=== PATIENT | male | born 1960 | race Caucasian/White ===

== ENCOUNTER 2016-11-24 22:37 | Emergency (ER) | payer OTHER ==
[~2016-11-24] VITALS: Ht 175.3 cm; Wt 115.9 kg
[2016-11-24] MEDS ORDERED: 0.9% Sodium Chloride 1,000 ML IV ONE (22:40)
--- NOTE | 2016-11-24 22:40 | ED.REPORT ---
HPI-Hip/Pelvis Prob/Inj Date of Service November 24, 2016 ED Provider: Dr. Dawson 56 y/o male with a hx of HTN and bilateral hip replacement presents to the ED via EMS complaining of possible left hip dislocation, onset an hour ago. The pt denies any pain currently. He states he was standing near the fridge when he pivoted on his left foot and heard a pop in the hip.He last ate an hour ago. The pt also had some alcohol an hour ago. This is his 3rd dislocation. Nursing Notes Stated Complaint: LEFT HIP PAIN Nursing Notes Reviewed: Yes Allergies: Coded Allergies: No Known Allergies (Unverified Allergy, Unknown, 11/24/16) Scheduled Aspirin (Aspirin) 81 Mg Tablet 81 MG PO DAILY Atorvastatin Calcium (Atorvastatin Calcium) 40 Mg Tablet 40 MG PO DAILY Fenofibrate Nanocrystallized (Fenofibrate) 145 Mg Tablet 160 MG PO DAILY Lisinopril (Lisinopril) 10 Mg Tablet 10 MG PO DAILY Metoprolol Succinate ER (Metoprolol Succinate ER) 50 Mg Tab.er.24h 50 MG PO DAILY Nabumetone (Nabumetone) 500 Mg Tablet 500 MG PO BID Scheduled PRN Acetaminophen (Acetaminophen) 325 Mg Tablet 325 MG PO Q4H PRN PRN For Fever Sildenafil Citrate (Viagra) 25 Mg Tablet 25 MG PO UD PRN PRN For Anxiety Miscellaneous Medications Cyanocobalamin (Vitamin B-12) (Vitamin B-12) 50 Mcg Tablet 50 MCG PO Etanercept (Enbrel) 50 Mg/1 Ml Pen.injctr 50 MG SQ General Time Seen by Provider: 22:40 Chief Complaint Hip dislocation left Hx Obtained From: Patient Arrived By: Ambulance Onset Occurred: 1 - 4 hours ago Context of Onset: Home injury Symptom Duration: Since onset Progression Since Onset: Unchanged Severity: Current: No pain currently Severity: Maximum: No pain Recent Healthcare: No recent doctor visit Similar Sx Previous: No Past Medical History Past Medical History Reports: Hypertension Past Surgical History Bilateral hip replacement Smoking History Unknown if Ever Smoker Social History Alcohol Use: "Social" Ambulatory Status Independent Review of Systems Reports: Left hip dislocation Complete sys rev & neg: except as marked. Physical Exam Initial Vital Signs Vital Signs (First) Date Time Temp Pulse Resp B/P Pulse Ox O2 Delivery O2 Flow Rate FiO2 11/24/16 22:51 36.2 75 18 126/74 93 Room Air Initial VS: Reviewed Head / Eyes: Atraumatic, Normocephalic Neck: Full range of motion Abdomen / GI: Soft, Non-tender Upper Extremities: Vascular intact, Neuro intact, No swelling, No tenderness Skin: Warm, Dry, No cyanosis Neurologic: Alert, Oriented, Nonfocal Lower Extremity / Pelvis / MS: Neurologic intact, Vascular intact Left Hip: Positive: ROM reduced... General/Constitutional: Awake, Alert, No acute distress, Cooperative Respiratory / Chest: Atraumatic, Breath sounds NL, Breath sounds = bilat, No respiratory distress, No rales, No rhonchi, No wheezing Cardiovascular: Heart rate NL, Regular rhythm, Heart sounds NL, No gallop, No murmurs, No rubs Back: Atraumatic, Full range of motion Skin: Atraumatic, Color NL, Warm, Dry, Intact Interpretation & Diagnostics Lab Results Interpretation Test 11/24/16 22:47 Hold Purple Top Tube Received (Received) Hold Blue Top Tube Received (Received) Hold [place] Top Tube Received (Received) X-Ray Interpretation Xray Interpretation: Result: Dislocation of left prosthetic hip X-Ray Ordered: Pelvis Interpretation / Wet Read by: Wet read ED physician Procedures Proced Mod Sedation/Analgesia Time: 01:25 Procedure Performed by: ED physician Sedation Time: 10 - 15 min Consent / Setup: Informed consent provided, Consent from patient, Time-out performed, Hand hygiene observed, Position supine Indication: Hip reduction Preparation: steel wheel engraver applied, Pulse oximeter applied, Constant attendance, IV access established, Eval last meal time, Supplemental oxygen, Procedure explained, Suction available, End tidal CO2 mon applied VS Prior to Procedure: All vital signs normal, O2 saturation normal, Blood pressure normal, Heart Rate normal, Respiratory rate normal Mallampati: Class & Anatomy: 3 hard pal/base uvula Airway Exam: Normal facial anatomy CVS/Resp Exam: Normal breath sounds, Normal heart sounds Neuro Exam: Alert, No acute distress, Responsive Sedation: Sedation: Propofol ASA Classification: 1 normal healthy patient Response During Procedure: Maintained airway well, Oxygenation stable, Sedation appropriate, Vital signs stable Complications During/After: None Reversal: None required Mental Status After Procedure: Alert, Oriented X3, Response to verbal stim, Not responsive, Normal per age, At patient's baseline Post-Procedure: Alert prior to discharge, Ambulatory with assist, Pt rtn pre- proc baseline, Vital signs normal Attestation: I performed procedure Reduction Post Dislocation Hip Time: 01:30 Procedure Performed by: ED physician Consent / Timeout / Setup: Informed consent provided, Consent from patient, Time-out performed, Hand hygiene observed Procedural Sedation/Analgesia: Sedation: Propofol Which Hip and Technique: Left hip Neurovascular: Intact pre-procedure, Intact post-procedure Post-Procedure / Complications: Reduced per examination, Procedure successful, X-ray disloc reduced, Condition improved, Tolerated procedure well, Patient stable Re-Eval/Medical Decision Source of Hx: Old records Re-Evaluation/Progress #1: Time of Eval: 00:38 Re-Evaluation/Progress Note: Rechekced pt. He is expereincing no pain currently. Discussed the plan to sedate and reduce his hip dislocation. The pt understands and agrees with the plan. All questions addressed. Re-Evaluation/Progress #2: Time of Eval: 02:25 Patient Status: Condition improved Re-Evaluation/Progress Note: Rechecked pt. He feels better and wants to go home. Informed the pt of the plan to discharge. Pt understands and agrees with plan. F/U instructions and RTER warning given. All questions addressed. Counseled Regarding: Diagnosis, Need for follow-up, When/why to return to ED Discharge & Departure Impression: Primary Impression: Dislocation of hip joint prosthesis Encounter type: initial encounter Qualified Code: T84.029A - Dislocation of unspecified internal joint prosthesis, initial encounter Disposition: Home Discharge Condition All VS Reviewed: Yes Condition: Stable Additional Instructions: Rest tonight, do not drive as we gave sedating medications. Follow up with your orthopedist soon- call for an appointment. Referrals: Manuel Diaz MD (PCP) PAN MORALES MDiblilliam Attestation Portions of this note were transcribed by Quiana Hart. I, , personally performed the history, physical exam and medical decision-making;I reviewed and confirmed the accuracy of the information in the transcribed note. Signed by Massiel Little. 11/25/16 02:24 copies to: Manuel Diaz MD; PAN MORALES MD, Donald L MD November 24, 2016 22:40 Quiana Hart November 24, 2016 23:00
[2016-11-24 22:51] VITALS: BP 126/74; PULSE 75; RESP 18; O2SAT 93
[2016-11-24] MEDS ORDERED: FENO145T19 PO (22:59)
[2016-11-24] MEDS ORDERED: VIAG25T PO (22:59)
[2016-11-24] MEDS ORDERED: ATOR40TA69 PO (22:59)
[2016-11-24] MEDS ORDERED: CYAN50TA2 PO (22:59)
[2016-11-24] MEDS ORDERED: LISI10TA PO (22:59)
[2016-11-24] MEDS ORDERED: NABU500T PO (22:59)
[2016-11-24] MEDS ORDERED: ASPI-973 PO (22:59)
[2016-11-24] MEDS ORDERED: ETAN50PE SQ (22:59)
[2016-11-24] MEDS ORDERED: ACET325T51 PO (22:59)
[2016-11-24] MEDS ORDERED: METO-272 PO (22:59)
[2016-11-24] MEDS: HYDROmorphone 0.5 mg/0.5 mL iSecure Syringe IVPUSH PRN (23:09)
[2016-11-25] MEDS: HYDROmorphone 0.5 mg/0.5 mL iSecure Syringe IVPUSH PRN (00:13)
[2016-11-25] MEDS ORDERED: Propofol 10 mg/mL 20 mL Inj ONE (01:25)
[2016-11-25] MEDS ORDERED: 0.9% Sodium Chloride 1,000 ML IV ONE (02:10)
[2016-11-25 02:33] VITALS: BP 113/80; PULSE 68; RESP 16; O2SAT 98
--- NOTE | 2016-11-25 07:45 | DRSVH ---
PROCEDURE: X-RAY PELVIS, ONE OR TWO VIEWS ([id number]) INDICATIONS: dislocated prosthetic hip TECHNIQUE: 1 view(s) of the pelvis acquired. COMPARISON: None. FINDINGS: Bones: Left hip arthroplasty dislocation is present. Right hip arthroplasty is present, and is in araseli nt. Soft tissues: Visualized bowel gas pattern is normal. No suspicious soft tissue calcifications. IMPRESSION: Left hip arthroplasty dislocation. Concordant with preliminary interpretation. Dictated by: Jared Chadwick M.D. on 11/25/2016 at 7:43 Approved by: Jared Chadwick M.D. on 11/25/2016 at 7:44
--- NOTE | 2016-11-25 07:48 | DRSVH ---
PROCEDURE: X-RAY PELVIS, ONE OR TWO VIEWS ([id number]) INDICATIONS: post reduction TECHNIQUE: 1 view(s) of the pelvis acquired. COMPARISON: [facility], CR, XR PELVIS 1 OR 2VW, 11/24/2016, 22:44. FINDINGS: Bones: Bilateral hip arthroplasty has been performed. No fractures or dislocations. No suspicious b romulo lesions. Soft tissues: Visualized bowel gas pattern is normal. No suspicious soft tissue calcifications. IMPRESSION: Relocation of left hip arthroplasty. Concordant with preliminary interpretation. Dictated by: Jared Chadwick M.D. on 11/25/2016 at 7:46 Approved by: Jared Chadwick M.D. on 11/25/2016 at 7:46
== END 2016-11-25 02:31 | disposition home or self-care (01) ==
LOC: SED 22:37
DX: T84.021A Dislocation of internal left hip prosthesis, initial encounter (principal); X50.1XXA Overexertion from prolonged static or awkward postures, initial encounter; Y92.000 Kitchen of unspecified non-institutional (private) residence as the place of occurrence of the external cause; Y93.89 Activity, other specified; Y99.8 Other external cause status; I10 Essential (primary) hypertension; Z96.643 Presence of artificial hip joint, bilateral; Z79.82 Long term (current) use of aspirin
CPT/HCPCS: 27265; 72170; 94770; 96361; 96374; 96376; 99284; J1170; J7030

== ENCOUNTER 2016-12-29 09:18 | Emergency (ER) | payer OTHER ==
[~2016-12-29] VITALS: Ht 175.3 cm; Wt 115.9 kg
[~2016-12-29 09:18] MED LIST: ACET325T51 PO; ASPI-973 PO; ATOR40TA69 PO; CYAN50TA2 PO; ETAN50PE SQ; FENO145T19 PO; LISI10TA PO; METO-272 PO; NABU500T PO; VIAG25T PO
--- NOTE | 2016-12-29 09:24 | ED.REPORT ---
HPI-Extremity Problem Lower Date of Service Dec 29, 2016 ED Provider: Godwin Woods MD Pt is a 56 y/o male w/ a hx of bilateral hip replacements and recurrent spontaneous hip dislocations, and hypertension, presenting to the ED via EMS due to probable left hip dislocation which occurred prior to arrival. The patient was walking and went to throw something in the garbage under his sink and his left hip spontaneously dislocated. He had a left hip replacement 2 years ago and he states he has dislocated his hip 4 times spontaneously in the past, most recently November 24, 2016. He has never required an orthopedist to reduce his hip in an OR setting. He hasn't taken his antihypertensives for 1 day. Nursing Notes Stated Complaint: DISLOCATED LEFT HIP Chief Complaint: Extremity Trauma Nursing Notes Reviewed: Yes Allergies: Coded Allergies: No Known Allergies (Unverified Allergy, Unknown, 12/29/16) Scheduled Aspirin (Aspirin) 81 Mg Tablet 81 MG PO DAILY Atorvastatin Calcium (Atorvastatin Calcium) 40 Mg Tablet 40 MG PO DAILY Fenofibrate Nanocrystallized (Fenofibrate) 145 Mg Tablet 160 MG PO DAILY Lisinopril (Lisinopril) 10 Mg Tablet 10 MG PO DAILY Metoprolol Succinate ER (Metoprolol Succinate ER) 50 Mg Tab.er.24h 50 MG PO DAILY Nabumetone (Nabumetone) 500 Mg Tablet 500 MG PO BID Scheduled PRN Acetaminophen (Acetaminophen) 325 Mg Tablet 325 MG PO Q4H PRN PRN For Fever Sildenafil Citrate (Viagra) 25 Mg Tablet 25 MG PO UD PRN PRN For Anxiety Miscellaneous Medications Cyanocobalamin (Vitamin B-12) (Vitamin B-12) 50 Mcg Tablet 50 MCG PO Etanercept (Enbrel) 50 Mg/1 Ml Pen.injctr 50 MG SQ General Time Seen by MD: 09:23 Chief Complaint Hip injury left Hx Obtained From: Patient, EMS Arrived By: Ambulance Onset Occurred: Just prior to arrival Symptom Duration: Since onset Location: : Hip left Quality: Painful Severity: Current: Moderate Severity: Maximum: Moderate Exacerbated by: Range of motion Past Medical History Past Medical History Sleep apnea Recurrent hip prosthesis dislocations Hypertension Past Surgical History Bilateral hip replacement Smoking History Unknown if Ever Smoker Social History Alcohol Use: "Social" Ambulatory Status Independent Review of Systems Constitutional: Denies: Chills, Fever Musculoskeletal: Reports: Joint pain Neurologic: Denies: Syncope Complete sys rev & neg: except as marked. Physical Exam Initial Vital Signs Vital Signs (First) Date Time Temp Pulse Resp B/P Pulse Ox O2 Delivery O2 Flow Rate FiO2 12/29/16 09:25 36.2 77 18 156/94 95 Room Air 12/29/16 10:26 3 Initial VS: Reviewed, Vital signs normal Head / Eyes: Atraumatic, Normocephalic, PERRL ENT: Mucous membranes moist, Conjunctiva normal, No scleral icterus Neck: Supple, Full range of motion Respiratory: Breath sounds normal, Clear to auscultation, No respiratory distress Cardiovascular: Regular rate & rhythm, Heart sounds normal, Intact distal pulses Abdomen / GI: Soft, Non-tender, No distention Upper Extremities: Vascular intact, Neuro intact, No swelling Skin: Warm, Dry, No cyanosis Neurologic: Alert, Oriented, Nonfocal Psychiatric: Mood/affect normal, Behavior normal, Normal thought content Lower Extremity / Pelvis / MS: Neurologic intact, Vascular intact, No compartment syndrome Left hip obvious dislocation LLE mildly externally rotated Ankle / Foot: No deformity, Neurologic intact, Vascular intact Interpretation & Diagnostics Lab Results Interpretation Test 12/29/16 11:05 Hold Purple Top Tube Received (Received) Hold Blue Top Tube Received (Received) Hold [place] Top Tube Received (Received) X-Ray Interpretation Xray Interpretation: IMPRESSION: Hip arthroplasty superior dislocation. Acetabular component positioning is anatomic. Dictated by: Benjamin Suggs M.D. on 12/29/2016 at 10:34 Approved by: Benjamin Suggs M.D. on 12/29/2016 at 10:35 Study Performed: 2 views X-Ray Ordered: Hip left Interpretation / Wet Read by: Interpret - Radiologist Xray Interpretation: IMPRESSION: Successful reduction of left hip arthroplasty dislocation, no [place] bone fracture found. Dictated by: Benjamin Suggs M.D. on 12/29/2016 at 11:08 Approved by: Benjamin Suggs M.D. on 12/29/2016 at 11:09 Study Performed: 1 view Interpretation / Wet Read by: Interpret - Radiologist Procedures Proced Mod Sedation/Analgesia 60 mg + 40 mg + 50 mg + 50 mg + 60 mg Time: 10:33 Procedure Performed by: ED physician Sedation Time: 16 - 30 min Consent / Setup: Informed consent provided, Consent from patient, Time-out performed, Hand hygiene observed, Stand sterile technique Indication: Hip reduction Preparation: personnel monitor applied, Pulse oximeter applied, Constant attendance, IV access established, Eval last meal time, Supplemental oxygen, Procedure explained, Suction available, End tidal CO2 mon applied VS Prior to Procedure: All vital signs normal, O2 saturation normal, Blood pressure normal, Heart Rate normal, Respiratory rate normal Mallampati: Class & Anatomy: 2 top tonsil/uvula/palate Airway Exam: Normal facial anatomy, Normal neck anatomy, Normal anatomy CVS/Resp Exam: Normal breath sounds, Normal heart sounds Neuro Exam: Alert, No acute distress Sedation: Sedation: Propofol, Analgesia: Dilaudid ASA Classification: 2 mild systemic disease Response During Procedure: Handled secretions adeq, Maintained airway well, Oxygenation stable, Sedation appropriate, Vital signs stable Complications During/After: None Reversal: None required Mental Status After Procedure: Alert, Oriented X3 Post-Procedure: Alert prior to discharge, Pt rtn pre-proc baseline, Vital signs normal Attestation: I performed procedure, I performed sedation Reduction Post Dislocation Hip Time: :33 Procedure Performed by: ED physician Consent / Timeout / Setup: Informed consent provided, Consent from patient, Time-out performed, Oxygen administered, Pulse oximeter applied, personnel monitor applied, Hand hygiene observed, Stand sterile technique Procedural Sedation/Analgesia: Sedation: Propofol, Analgesia: Dilaudid Which Hip and Technique: Left hip, Allis technique Neurovascular: Intact pre-procedure, Intact post-procedure Post-Procedure / Complications: Reduced per examination, Procedure successful, X-ray disloc reduced, Hip immobilized, Condition improved, Tolerated procedure well, Patient stable Re-Eval/Medical Decision Med Decision/Clinical Course 56-year-old male history of bilateral prosthetic hip presenting with left hip dislocation. There is no fracture. I reduce this under conscious sedation as above. Successful reduction. Neurovascular intact status post reduction. Patient tolerated conscious sedation well. Discharged with plans to follow up with his orthopedic surgeon within the next week. Return precautions given. Source of Hx: Old records Re-Evaluation/Progress #1: Time of Eval: 10:33 Re-Evaluation/Progress Note: Procedure performed with no complications Re-Evaluation/Progress #2: Time of Eval: 11:16 Re-Evaluation/Progress Note: Pt rechecked. Feeling back to baseline. Normal mental/neuro status. LLE NV intact. Informed pt of plan for treatment. Pt understands and agrees with plan for treatment. F/U instructions and RTER warnings given. All questions addressed. Counseled Regarding: Diagnosis, Need for follow-up, When/why to return to ED Discharge & Departure Impression: Primary Impression: Dislocation of hip joint prosthesis Encounter type: initial encounter Qualified Code: T84.029A - Dislocation of unspecified internal joint prosthesis, initial encounter Disposition: Home Discharge Condition All VS Reviewed: Yes Condition: Improved Patient Instructions: Hip Dislocation (ED) Additional Instructions: The hip was successfully reduced today. Follow-up with your orthopedic surgeon to discuss today's events. Return to the emergency department if you dislocate again or have any other concerning symptoms. Referrals: Manuel Diaz MD (PCP) Scribe Attestation Portions of this note were transcribed by Fermin Valera. I, Dr. Woods, personally performed the history, physical exam and medical decision-making; I reviewed and confirmed the accuracy of the information in the transcribed note. Signed by Massiel Heller, 12/29/16 - [id number] copies to: Manuel Diaz MD, Ben M MD Dec 29, 2016 09:24 FERMIN VALERA Dec 29, 2016 09:31
[2016-12-29 09:25] VITALS: BP 156/94; PULSE 77; RESP 18; O2SAT 95
[2016-12-29] MEDS ORDERED: Ondansetron 2 mg/mL 2 mL Inj IVPUSH PRN (09:35)
[2016-12-29] MEDS ORDERED: Propofol 10 mg/mL 20 mL Inj IVPUSH ONE (09:35)
[2016-12-29] MEDS ORDERED: HYDROmorphone 1 mg/mL Inj IVPUSH PRN (09:35)
[2016-12-29 10:26] VITALS: BP 160/87; PULSE 78; RESP 28; O2SAT 97
--- NOTE | 2016-12-29 10:37 | DRSVH ---
PROCEDURE: X-RAY LEFT HIP COMPLETE, MINIMUM TWO VIEWS ([id number]) INDICATIONS: dislocation lt hip TECHNIQUE: 2 views of the hip were acquired. COMPARISON: None. FINDINGS: Bones: No fractures there is a left total hip arthroplasty posterior location with the prosthetic fe moral head cephalad to the upper outer border of the acetabulum component. No suspicious bony lesion s. The visualized pelvic ring appears intact. Soft tissues: No suspicious soft tissue calcifications or masses. IMPRESSION: Hip arthroplasty superior dislocation. Acetabular component positioning is anatomic. Dictated by: Benjamin Suggs M.D. on 12/29/2016 at 10:34 Approved by: Benjamin Suggs M.D. on 12/29/2016 at 10:35
--- NOTE | 2016-12-29 11:11 | DRSVH ---
PROCEDURE: X-RAY LEFT HIP, ONE VIEW ([id number]) INDICATIONS: POST REDUCTION/ VERBAL ORDER PER DR ENDY HAN TECHNIQUE: Single view of the hip were acquired. COMPARISON: None. FINDINGS: Bones: No fractures or dislocations. No suspicious bony lesions. The visualized pelvic ring appear s intact. Soft tissues: No suspicious soft tissue calcifications or masses. IMPRESSION: Successful reduction of left hip arthroplasty dislocation, no [place] bone fracture found. Dictated by: Benjamin Suggs M.D. on 12/29/2016 at 11:08 Approved by: Benjamin Suggs M.D. on 12/29/2016 at 11:09
[2016-12-29 11:52] VITALS: BP 136/85; PULSE 71; RESP 19; O2SAT 95
== END 2016-12-29 11:54 | disposition home or self-care (01) ==
LOC: SED 09:18
DX: T84.021A Dislocation of internal left hip prosthesis, initial encounter (principal); X58.XXXA Exposure to other specified factors, initial encounter; Y93.01 Activity, walking, marching and hiking; Y92.9 Unspecified place or not applicable; Y99.8 Other external cause status; I10 Essential (primary) hypertension; Z79.82 Long term (current) use of aspirin